=== PATIENT | male | born 1975 | race Caucasian/White ===

== ENCOUNTER 2017-01-24 22:38 | Emergency (ER) | payer OTHER ==
[2017-01-24 23:05] VITALS: BP 135/90; PULSE 97; TEMP 97.5; BMI 32.3
--- NOTE | 2017-01-25 01:05 | PDOC ---
History of Present Illness - General History Source: Patient Exam Limitations: No Limitations - History of Present Illness Initial Comments: 01/25/17 02:54 The patient is a 41 year old male with a PMHx of HLD and herniated discs who presents to the ED with right sided shoulder, side, and ear pain. The pain is chronic due to his herniated discs. He denies any other complaints. <Candida Chapin - Last Filed: 01/25/17 02:54> <Alison Valdez - Last Filed: 01/25/17 22:15> - General Chief Complaint: Back Pain Stated Complaint: RT SHOULDER PAIN Time Seen by Provider: 01/25/17 01:00 Past History <Candida Chapin - Last Filed: 01/25/17 02:54> - Past Medical History Hypercholesterolemia: Yes Other medical history: herniated disc - Psycho/Social/Smoking Cessation Hx Anxiety: No Suicidal Ideation: No Smoking Status: No Smoking History: Never smoked Have you smoked in the past 12 months: No Number of Cigarettes Smoked Daily: 0 Information on smoking cessation initiated: No Hx Alcohol Use: No Drug/Substance Use Hx: No Substance Use Type: None <Alison Valdez - Last Filed: 01/25/17 22:15> - Past Medical History Allergies/Adverse Reactions: Allergies Allergy/AdvReac Type Severity Reaction Status Date / Time No Known Allergies Allergy Verified 01/24/17 23:02 Home Medications: Ambulatory Orders Prednisone [Deltasone -] 20 mg PO BID #8 tablet 10/25/16 Oxycodone HCl/Acetaminophen [Percocet 5-325 mg Tablet] 1 tab PO Q6H #20 tablet MDD 4 01/25/17 Review of Systems - Review of Systems Comments:: 01/25/17 02:54 GENERAL/CONSTITUTIONAL: No fever or chills. No weakness. HEAD, EYES, EARS, NOSE AND THROAT: Right ear pain. No change in vision. No ear discharge. No sore throat. CARDIOVASCULAR: No chest pain or shortness of breath. RESPIRATORY: No cough, wheezing, or hemoptysis. GASTROINTESTINAL: No nausea, vomiting, diarrhea or constipation. GENITOURINARY: No dysuria, frequency, or change in urination. MUSCULOSKELETAL: right sided shoulder, side, back pain SKIN: No rash NEUROLOGIC: No headache, vertigo, loss of consciousness, or change in strength/ sensation. ENDOCRINE: No increased thirst. No abnormal weight change. HEMATOLOGIC/LYMPHATIC: No anemia, easy bleeding, or history of blood clots. ALLERGIC/IMMUNOLOGIC: No hives or skin allergy. <Aniceto Chapinbrad Rausch - Last Filed: 01/25/17 02:54> *Physical Exam - Vital Signs Last Vital Signs Temp Pulse Resp BP Pulse Ox 97.5 F L 97 H 17 135/90 99 01/24/17 22:59 01/24/17 22:59 01/24/17 22:59 01/24/17 22:59 01/24/17 22:59 - Physical Exam Comments: 01/25/17 02:54 GENERAL: Awake, alert, and fully oriented, in no acute distress HEAD: No signs of trauma EYES: PERRLA, EOMI, sclera anicteric, conjunctiva clear ENT: Auricles normal inspection, hearing grossly normal, nares patent, oropharynx clear without exudates. Moist mucosa NECK: Normal ROM, supple, no lymphadenopathy, JVD, or masses LUNGS: Breath sounds equal, clear to auscultation bilaterally. No wheezes, and no crackles HEART: Regular rate and rhythm, normal S1 and S2, no murmurs, rubs or gallops ABDOMEN: Soft, nontender, normoactive bowel sounds. No guarding, no rebound. No masses EXTREMITIES: No bony stepoffs. Normal range of motion, no edema. No clubbing or cyanosis. No cords, erythema, or tenderness NEUROLOGICAL: Cranial nerves II through XII grossly intact. Normal speech, normal gait SKIN: Warm, Dry, normal turgor, no rashes or lesions noted. <ChapinCandida - Last Filed: 01/25/17 02:54> - Vital Signs Last Vital Signs Temp Pulse Resp BP Pulse Ox 97.5 F L 97 H 17 135/90 99 01/24/17 22:59 01/24/17 22:59 01/24/17 22:59 01/24/17 22:59 01/24/17 22:59 <Alison Valdez - Last Filed: 01/25/17 22:15> ED Treatment Course - Medications Given in the ED: ED Medications Discontinued Medications Generic Name Dose Route Start Last Admin Trade Name Freq PRN Reason Stop Dose Admin Oxycodone/Acetaminophen 2 combo 01/25/17 01:15 01/25/17 01:21 Percocet 5/325 - PO 01/25/17 01:16 2 combo ONCE ONE Administration <Candida Chapin - Last Filed: 01/25/17 02:54> Medical Decision Making - Medical Decision Making 01/25/17 22:14 Pt comes with chronic pain and he wants percocet. I gave him a prescription. Follow with pain management. Exam is normal, except for chronic pain. Afebrile. <Alison Valdez - Last Filed: 01/25/17 22:15> *DC/Admit/Observation/Transfer - Attestations Scribe Attestion: 01/25/17 02:55 Documentation prepared by Candida Chapin, acting as medical billing manager for Alison Valdez MD. <Candida Chapin - Last Filed: 01/25/17 02:54> - Discharge Dispostion Admit: No <Alison Valdez - Last Filed: 01/25/17 22:15> Diagnosis at time of Disposition: Chronic pain - Discharge Dispostion Disposition: HOME Condition at time of disposition: Stable - Prescriptions Prescriptions: Oxycodone HCl/Acetaminophen [Percocet 5-325 mg Tablet] 1 tab PO Q6H #20 tablet MDD 4 - Referrals Referrals: Dima Stone MD [Primary Care Provider] - - Patient Instructions Printed Discharge Instructions: DI for Chronic Pain -- Adult
[2017-01-25] MEDS ORDERED: OXYCODONE/APAP 5/325MG COMBO TABLET PO ONE (01:15)
[2017-01-25] MEDS ORDERED: OXYCODONE/APAP 5/325MG COMBO TABLET ONE ×2 (01:19→01:20)
== END 2017-01-25 01:46 | disposition home or self-care (01) ==
LOC: JER 22:38 → SUPCPDRO 22:38 → JER 01-25 01:46
DX: M54.5 Low back pain (principal); M25.511 Pain in right shoulder; G89.29 Other chronic pain
CPT/HCPCS: 99282-25